=== PATIENT | female | born 1995 | race Caucasian/White ===

== ENCOUNTER 2018-08-13 22:29 | Inpatient (IN) | payer OTHER ==
[~2018-08-13] VITALS: Ht 165.1 cm; Wt 75.0 kg
[2018-08-13 22:30] VITALS: BP 131/63
[2018-08-13] MEDS: LACTATED RINGERS 1,000 ML IV SCH (23:25)
[2018-08-13] MEDS ORDERED: OXYTOCIN 30U/ 0.9% NaCL 500ML 500 ML IV ONE (23:33)
[2018-08-13] MEDS ORDERED: D5%-LACTATED RINGERS 1,000 ML IV SCH (23:33)
[2018-08-13] MEDS ORDERED: OXYTOCIN 30U/ 0.9% NaCL 500ML 500 ML ONE (23:43)
[2018-08-13] MEDS ORDERED: LIDOCAINE/PF 1%, 30ML ONE (23:43)
[2018-08-13] MEDS ORDERED: NEWBORN KIT ONE (23:43)
[2018-08-13] MEDS ORDERED: MISOPROSTOL 200 MCG TABLET ONE (23:43)
[2018-08-13 23:56] LABS: BASOPHILS # (AUTO) 0.05 x10^3/uL (0-0.1); BASOPHILS % (AUTO) 0 % (0-1); EOSINOPHILS # (AUTO) 0.07 x10^3/uL (0-0.4); EOSINOPHILS % (AUTO) 1 % (1-7); LYMPHOCYTES # (AUTO) 2.07 x10^3/uL (1-3.4); LYMPHOCYTES % (AUTO) 16 % (22-44); MD NO; MEAN CORPUSCULAR HEMOGLOBIN 30.2 pg (27.0-34.8); MEAN CORPUSCULAR HGB CONC 34.1 g/dL (32.4-35.8); MEAN CORPUSCULAR VOLUME 88.7 fL (80-100); MEAN PLATELET VOLUME 8.3 fL (7.4-10.4); MONOCYTES # (AUTO) 0.84 x10^3/uL (0.2-0.8); MONOCYTES % (AUTO) 7 % (2-9); NEUTROPHILS # (AUTO) 9.81 x10^3/uL (1.8-6.8); NEUTROPHILS % (AUTO) 76 % (42-75); PLATELET COUNT 233 x10^3/uL (130-400); RED BLOOD COUNT 4.12 x10^6/uL (3.82-5.3); RED CELL DISTRIBUTION WIDTH 12.7 % (9.6-15.2)
[2018-08-14] MEDS ORDERED: FENTANYL PF 100 MCG/2ML IVPush PRN
[2018-08-14] MEDS ORDERED: CALCIUM CARBONATE 500 MG TAB.CHEW PO PRN
[2018-08-14] MEDS ORDERED: ONDANSETRON 2MG/ML, 2ML IVPush PRN
[2018-08-14] MEDS ORDERED: FENTANYL PF 100 MCG/2ML IV PRN
[2018-08-14] MEDS ORDERED: FENTANYL PF 100 MCG/2ML ONE (00:05)
[2018-08-14] MEDS: LACTATED RINGERS 1,000 ML IV SCH (02:32)
[2018-08-14] MEDS ORDERED: LACTATED RINGERS 1,000 ML IV SCH (02:36)
[2018-08-14] MEDS ORDERED: FENTANYL/BUPIV./NS/PF 250 ML EPIDCONT SCH (02:36)
[2018-08-14] MEDS ORDERED: FENTANYL/BUPIV./NS/PF 250 ML EPIDCONT ONE ×2 (02:38→02:42)
[2018-08-14] MEDS ORDERED: BUPIVACAINE 0.25% ONE ×2 (02:38→02:42)
[2018-08-14] MEDS ORDERED: LACTATED RINGERS 1,000 ML IVBOLUS PRN (03:00)
[2018-08-14] MEDS ORDERED: EPHEDRINE 50 MG/ML, 1ML IVPush PRN (03:00)
[2018-08-14] MEDS ORDERED: NALOXONE 0.4 MG/ML, 1ML IVPush PRN (03:00)
[2018-08-14] MEDS ORDERED: OXYcodone/APAP 5/325MG TABLET ONE ×2 (06:35→09:28)
[2018-08-14] MEDS ORDERED: IBUPROFEN 600 MG TABLET ONE (06:35)
[2018-08-14] MEDS: IBUPROFEN 200 MG TABLET PO PRN (06:39)
[2018-08-14] MEDS: OXYcodone/APAP 5/325MG TABLET PO PRN ×2 (06:39→15:28)
[2018-08-14] MEDS ORDERED: OXYcodone/APAP 5/325MG TABLET PO PRN (07:00)
[2018-08-14] MEDS ORDERED: ONDANSETRON 2MG/ML, 2ML IV PRN (07:00)
[2018-08-14] MEDS ORDERED: METHYLERGONOVINE 0.2 MG/ML IM PRN (07:00)
[2018-08-14] MEDS ORDERED: MISOPROSTOL 200 MCG TABLET PR PRN (07:00)
[2018-08-14] MEDS ORDERED: OXYTOCIN 30U/ 0.9% NaCL 500ML 500 ML ONE (07:21)
[2018-08-14] MEDS: OXYTOCIN 30U/ 0.9% NaCL 500ML 500 ML IV SCH ×2 (07:27→16:34)
[2018-08-14] MEDS: PRENATAL VIT/IRON/FA 1 EACH TABLET PO SCH (09:00)
[2018-08-14] MEDS ORDERED: KETOROLAC 30 MG/1 ML IVPush STA (09:39)
[2018-08-14 10:50] VITALS: BP 103/66
[2018-08-14 14:54] LABS: BASOPHILS # (AUTO) 0.03 x10^3/uL (0-0.1); BASOPHILS % (AUTO) 0 % (0-1); EOSINOPHILS # (AUTO) 0.01 x10^3/uL (0-0.4); EOSINOPHILS % (AUTO) 0 % (1-7); LYMPHOCYTES # (AUTO) 1.38 x10^3/uL (1-3.4); LYMPHOCYTES % (AUTO) 11 % (22-44); MD NO; MEAN CORPUSCULAR HEMOGLOBIN 30.2 pg (27.0-34.8); MEAN CORPUSCULAR HGB CONC 33.7 g/dL (32.4-35.8); MEAN CORPUSCULAR VOLUME 89.7 fL (80-100); MEAN PLATELET VOLUME 8.7 fL (7.4-10.4); MONOCYTES # (AUTO) 0.67 x10^3/uL (0.2-0.8); MONOCYTES % (AUTO) 5 % (2-9); NEUTROPHILS # (AUTO) 10.87 x10^3/uL (1.8-6.8); NEUTROPHILS % (AUTO) 84 % (42-75); PLATELET COUNT 195 x10^3/uL (130-400); RED BLOOD COUNT 3.57 x10^6/uL (3.82-5.3)
[2018-08-14 14:55] LABS: HEMOGRAM NOTE RECHECKED
[2018-08-14 15:00] VITALS: BP 104/57
[2018-08-14 19:45] VITALS: BP 111/69
[2018-08-15 00:15] VITALS: BP 121/74
[2018-08-15] MEDS: OXYTOCIN 30U/ 0.9% NaCL 500ML 500 ML IV SCH ×2 (01:06→12:34)
[2018-08-15] MEDS: DOCUSATE 100 MG CAPSULE PO PRN ×3 (01:49→22:45)
[2018-08-15] MEDS: OXYcodone/APAP 5/325MG TABLET PO PRN ×3 (01:49→22:45)
[2018-08-15 07:50] VITALS: BP 108/71
[2018-08-15] MEDS: PRENATAL VIT/IRON/FA 1 EACH TABLET PO SCH (10:10)
[2018-08-15 20:00] VITALS: BP_SYST 110; BP_SYST 117; BP_DIAS 67; BP_DIAS 73
[2018-08-16 07:40] VITALS: BP 107/69
[2018-08-16] MEDS ORDERED: IBUPROFEN 600 MG TABLET ONE (07:45)
[2018-08-16] MEDS: DOCUSATE 100 MG CAPSULE PO PRN (07:48)
[2018-08-16] MEDS: PRENATAL VIT/IRON/FA 1 EACH TABLET PO SCH (07:49)
[2018-08-16] MEDS: OXYcodone/APAP 5/325MG TABLET PO PRN (07:49)
[2018-08-16] MEDS: IBUPROFEN 200 MG TABLET PO PRN (07:50)
[2018-08-16] MEDS ORDERED: IBUP-1222 PO (10:27)
== END 2018-08-16 13:14 | disposition home or self-care (01) | DRG 807 ==
LOC: LDOP 22:29 → LDIP 23:43 → 2NW 08-14 10:51
PROVIDERS: ADMIT Obstetrics & Gynecology Gynecology; ATTEND Obstetrics & Gynecology Gynecology
PROC: 10E0XZZ Delivery of Products of Conception, External Approach (ICD-10-PCS; principal; 2018-08-14)
PROC: 0KQM0ZZ Repair Perineum Muscle, Open Approach (ICD-10-PCS; 2018-08-14)
PROC: 0UQMXZZ Repair Vulva, External Approach (ICD-10-PCS; 2018-08-14)
PROC: 10907ZC Drainage of Amniotic Fluid, Therapeutic from Products of Conception, Via Natural or Artificial Opening (ICD-10-PCS; 2018-08-14)
PROC: 3E0R3BZ Introduction of Anesthetic Agent into Spinal Canal, Percutaneous Approach (ICD-10-PCS; 2018-08-14)
PROC: 00HU33Z Insertion of Infusion Device into Spinal Canal, Percutaneous Approach (ICD-10-PCS; 2018-08-14)
DX: O70.1 Second degree perineal laceration during delivery (principal); Z37.0 Single live birth; Z3A.40 40 weeks gestation of pregnancy
CPT/HCPCS: 36415; 85025; 86850; 86900; G0378; J1885; J3010; J3490; J2590; J7120

== ENCOUNTER 2020-07-29 18:17 | Emergency (ER) | payer MEDICAID, OTHER ==
[~2020-07-29] VITALS: Ht 165.1 cm; Wt 57.8 kg
[~2020-07-29 18:17] MED LIST: IBUP-1222 PO
[2020-07-29 18:27] VITALS: BP 112/84
[2020-07-29 19:34] LABS: MICROSCOPIC AUTO
[2020-07-29 19:45] LABS: ALBUMIN 3.8 g/dL (3.4-5.0); ANION GAP 5 mmol/L (5-15); BASOPHILS % (AUTO) 1 % (0-1); CALCIUM 8.8 mg/dL (8.5-10.1); CHLORIDE 109 mmol/L (98-107); EOSINOPHILS % (AUTO) 2 % (1-7); LYMPHOCYTES % (AUTO) 35 % (22-44); MEAN CORPUSCULAR HEMOGLOBIN 29.6 pg (27.0-34.8); MEAN CORPUSCULAR HGB CONC 33.8 g/dL (32.4-35.8); MEAN PLATELET VOLUME 8.8 fL (7.4-10.4); MONOCYTES % (AUTO) 8 % (2-9); NEUTROPHILS % (AUTO) 55 % (42-75); PLATELET COUNT 201 x10^3/uL (130-400); RED BLOOD COUNT 4.51 x10^6/uL (3.82-5.3)
[2020-07-29 19:47] LABS: MD NO
[2020-07-29 19:50] LABS: ALANINE AMINOTRANSFERASE 23 U/L (12-78); ALKALINE PHOSPHATASE 43 U/L (45-117); BILIRUBIN,TOTAL 0.5 mg/dL (0.2-1.0); CREATININE 0.77 mg/dL (0.55-1.02); TOTAL PROTEIN 7.3 g/dL (6.4-8.2)
--- NOTE | 2020-07-29 20:47 | NUR ---
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
--- NOTE | 2020-07-29 20:58 | NUR ---
PATIENT WALKED BACK FROM LOBBY WITH CHIEF C/O ABD PAIN. PATIENT STATES SHE FEELS LIKE "SOMETHING BURST INSIDE MY STOMACH." PATIENT REPORTS SHE'S BEEN HAVING ABD PAIN X6 MONTHS, AND IS EXPERIENCING BLOATING. PATIENT REPORTS THE PAIN BEING GENERALIZED MOST OF THE TIME, HOWEVER, THIS TIME IT IS LOCATED IN HER RLQ. PATIENT DENIES PAIN WITH URINATION. LAST BM WAS YESTERDAY, AND PATIENT REPORTS DIFFICULTY WITH TRYING TO HAVE A BM TODAY. NO SIGNS OF ACUTE DISTRESS, CONNECTED TO VITALS MACHINE, CALL LIGHT WITHIN REACH.
--- NOTE | 2020-07-29 21:23 | NUR ---
ERMD AT BEDSIDE FOR EVALUATION.
--- NOTE | 2020-07-29 21:59 | NUR ---
Patient given discharge instructions and they have confirmed that they understand the instructions. Patient in stable condition ambulatory with steady gait from ED.
== END 2020-07-29 22:00 | disposition home or self-care (01) ==
LOC: ED 21:46
DX: N83.291 Other ovarian cyst, right side (principal); R10.31 Right lower quadrant pain; K59.00 Constipation, unspecified; R11.2 Nausea with vomiting, unspecified; N93.9 Abnormal uterine and vaginal bleeding, unspecified; F17.200 Nicotine dependence, unspecified, uncomplicated
CPT/HCPCS: 36415; 76830; 80053; 81001; 84703; 85025; 99284

== ENCOUNTER 2021-01-29 10:55 | Emergency (ER) | payer MEDICAID ==
[~2021-01-29] VITALS: Ht 162.6 cm; Wt 57.3 kg
[2021-01-29 11:27] LABS: BASOPHILS % (AUTO) 1 % (0-1); EOSINOPHILS % (AUTO) 2 % (1-7); LYMPHOCYTES % (AUTO) 19 % (22-44); MEAN CORPUSCULAR HEMOGLOBIN 29.9 pg (27.0-34.8); MEAN CORPUSCULAR HGB CONC 33.8 g/dL (32.4-35.8); MEAN PLATELET VOLUME 8.3 fL (7.4-10.4); MONOCYTES % (AUTO) 8 % (2-9); NEUTROPHILS % (AUTO) 71 % (42-75); PLATELET COUNT 229 x10^3/uL (130-400); RED BLOOD COUNT 4.97 x10^6/uL (3.82-5.3); RED CELL DISTRIBUTION WIDTH 13.1 % (9.6-15.2)
[2021-01-29 11:29] LABS: MD NO
[2021-01-29 11:31] LABS: ALANINE AMINOTRANSFERASE 26 U/L (12-78); ALBUMIN 4.3 g/dL (3.4-5.0); ANION GAP 5 mmol/L (5-15); CALCIUM 9.1 mg/dL (8.5-10.1); CHLORIDE 103 mmol/L (98-107); CREATININE 0.87 mg/dL (0.55-1.02)
[2021-01-29 11:35] LABS: ALKALINE PHOSPHATASE 71 U/L (45-117); BILIRUBIN,TOTAL 1.3 mg/dL (0.2-1.0); TOTAL PROTEIN 8.4 g/dL (6.4-8.2)
--- NOTE | 2021-01-29 12:10 | NUR ---
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
--- NOTE | 2021-01-29 12:18 | NUR ---
pt walked back from triage with chief complaint of abd pain and vb, n/v- hx of ruptured ovarian cyst 08/2020.
[2021-01-29 12:20] VITALS: BP 105/61
[2021-01-29 12:39] LABS: MICROSCOPIC INDICATED
--- NOTE | 2021-01-29 12:45 | NUR ---
DARWIN LUX AT BEDSIDE FOR EVAL
--- NOTE | 2021-01-29 12:57 | NUR ---
Discharge instructions reviewed
== END 2021-01-29 12:59 | disposition home or self-care (01) ==
LOC: ED 12:15
DX: N30.00 Acute cystitis without hematuria (principal); N83.291 Other ovarian cyst, right side; R10.30 Lower abdominal pain, unspecified
CPT/HCPCS: 36415; 76830; 80053; 81001; 83690; 84703; 85025; 87086; 99284